=== PATIENT | male | born 1970 | race Asian ===

== ENCOUNTER 2020-03-09 11:02 | Outpatient (CLI) | payer OTHER | END 2020-03-09 20:34 | disposition home or self-care (01) | LOC: LABW 11:02 | PROVIDERS: ATTEND Podiatrist Foot & Ankle Surgery | DX: M10.072 Idiopathic gout, left ankle and foot (principal) | CPT/HCPCS: 36415; 84550 ==

== ENCOUNTER 2020-06-11 06:53 | Inpatient (IN) | payer OTHER ==
[2020-06-11] VITALS (9 sets, daily range): BP systolic 101–136; BP diastolic 66–90; TEMP 97.4–98.6; Ht 182.9 cm; Wt 102.1 kg
[~2020-06-11] VITALS: Ht 182.9 cm; Wt 102.1 kg
[2020-06-11 07:20] LABS: PLATELET COUNT 257 K/uL (142-355)
[2020-06-11 07:25] LABS: POTASSIUM 3.9 mmol/L (3.6-5.2); SODIUM 137 mmol/L (136-145)
[2020-06-11 07:31] LABS: PARTIAL THROMBOPLASTIN TIME 24.1 SECONDS (24.5-33.6)
[2020-06-11] MEDS ORDERED: COLCHICINE0.6 MG PO (12:11)
[2020-06-11] MEDS ORDERED: FENOFIBRATE54 MG PO (12:12)
[2020-06-11] MEDS ORDERED: AMLODIPINE BESYLATE PO (12:13)
[2020-06-11] MEDS ORDERED: ALLO100T22 PO (12:14)
--- NOTE | 2020-06-11 16:15 | NUR ---
NURSE BARAKAT OF CALLED AND STATED PATIENT HAS BEEN APPROVED FOR MRI SCHEDULED FOR TOMORROW AM (MONDAY, 06/11).
--- NOTE | 2020-06-11 20:54 | NUR ---
PT EXHIBITING ANXIOUS BEHAVIOR AND DEMONSTRATING RESTLESS BEHAVIOR. PT IS SITTING UP IN A HIGH FOWLERS POSITION WITH BED IN LOWEST POSITION, AND PT STATES "I KNOW I'M PROBABLY DETOXING BUT IT FEELS LIKE BUGS ARE BITING ME" PRN MEDICATIONS ADMINISTERED PER DOCTOR'S ORDER. CALL LIGHT WITHIN REACH AND WILL CONTINUE TO MONITOR FOR MEDICATION EFFECTIVENESS.
--- NOTE | 2020-06-11 23:01 | NUR ---
PRN MORPHINE 2 MG GIVEN PER DOCTOR'S ORDER DUE TO PT'S CONTINUOUS COMPLAINT OF CONSTANT EPIGASTRIC PAIN THAT RADIATES TO THE LEFT HYPOCHONDRIUM REGION. PT STATES "IT IS A 7 ON A SCALE FROM 1-10". WILL CONTINUE TO MONITOR FOR MEDICATION EFFECTIVENESS.
[2020-06-12 02:09] LABS: POTASSIUM 3.4 mmol/L (3.6-5.2)
--- NOTE | 2020-06-12 03:56 | NUR ---
PRN MORPHINE GIVEN AT THIS TIME FOR ABDOMINAL PAIN AND DISCOMFORT.
[2020-06-12 04:00] VITALS: BP 120/78; TEMP 98.4
--- NOTE | 2020-06-12 04:45 | NUR ---
PT IS RESTING QUIETLY AT THIS TIME IN A LOW-FOWLERS POSITION WITH SIDE RAILS UP TIMES TWO WITH BED IN LOWEST POSITION WITH TV ON AT THIS TIME.
[2020-06-12 08:00] VITALS: BP 134/92; TEMP 98.8
--- NOTE | 2020-06-12 09:10 | NUR ---
PATIENT C/O OF ABDOMINAL PAIN AND REPORTS PAIN "GOES AROUND ON RIGHT SIDE AND LOOPS AROUND TO LEFT SIDE AND IS SPREADING SLOWLY UP MY STOMACH". PATIENT DESCRIBES THE PAIN THROBBIN, SHARP PAIN AND TENDER TO TOUCH, 10/10 ON NUMERIC PAIN SCALE. ADMINISTERED MORPHINE 2MG SIVP PER PHYSICIAN ORDERS. PATIENT TOLERATED WELL. FOR BREAKFAST, PATIENT HAD A BOWL OF BROTH, APPLE JUICE X2, AND HALF BOTTLE OF WATER THIS MORNING.
--- NOTE | 2020-06-12 10:20 | NUR ---
PATIENT CONTINUE TO EXPERIENCE EPIGASTRIC AND ABDOMINAL PAIN, 8/10 NUMERIC PAIN SCALE.
--- NOTE | 2020-06-12 11:55 | NUR ---
PATIENT C/O OF BEING ANXIOUS DUE TO PAIN AND REQUESTING ATIVAN. ATIVAN ADMINISTERED VIA SIVP PER PHYSICIAN ORDERS. NO S/SX OF DISTRESS NOTED WITH PATIENT AT THIS TIME.
[2020-06-12 12:00] VITALS: BP 148/97; TEMP 98.1
--- NOTE | 2020-06-12 14:05 | NUR ---
PATIENT IN SEMI FOWLERS POSITION WATCHING TV. BANANA BAG BEGAN INFUSING AT 200ML/HR WITHOUT DIFFICULTY. PATIENT DENIES ANY PAIN OR BURNING TO IV SITE, NO REDNESS, EDEMA OR DRAINAGE NOTED. PATIENT INSTRUCTED TO CALL FOR ANY ASSISTANCE OR NEEDS, PT V/O UNDERSTANDING. CALL LIGHT WITHIN REACH.
--- NOTE | 2020-06-12 14:20 | NUR ---
PATIENT STATED "I HOPE SHE LETS ME GO BACK HOME". QUESTIONED PATIENT ON HIS DESIRE TO ATTEND INHOUSE THERAPY PREVIOUSLY V/O BY PATIENT. PATIENT V/O HE WOULD LIKE THERAPY BUT HE HAS A NEW HOME, BABY, NEW VEHICLE AND BEEN FOR FIVE (5) YEARS.
[2020-06-12 16:00] VITALS: BP 119/89; TEMP 98.5
--- NOTE | 2020-06-12 17:51 | NUR ---
PER DR. BLANKENSHIP, PATIENT IS ALLOWED TO HAVE ICE CHIPS. PROVIDED WATER CUP FILLED WITH ICE CHIPS TO PATIENT AT THIS TIME.
--- NOTE | 2020-06-12 19:45 | NUR ---
PT CALLED COUNTERSINKER BALANCE SCREW HOLE LIGHT WANTING HIS NURSE OG. PT FOUND AWAKE, ALERT, AND ORIENTED STANDING NEXT TO BED, STATES HE HEARD AND SAW A RAT IN ROOM MULTIPLE TIMES AND THAT HE WANTS TO LEAVE. REASSURED PT AND TALKED WITH PT TO CALM HIM. EXPLAINED THAT IF HE LEFT IT WOULD BE AGAINST MEDICAL ADVICE AND ENCOURAGED PT TO STAY DUE TO MEDICAL RISKS. PT STATES HE WANTS TO LEAVE AND HE WILL SIGN AMA FORM. AGAIN TRIED TO ENCOURAGED PT TO STAY AT LEAST TILL MORNING AND STAFF WOULD MOVE HIM TO ANOTHER ROOM. PT REFUSES AND WANTS TO LEAVE. ALSO ASKED FOR STAFF TO TAKE HIS IV OUT. ADVISED PT THAT TREE TRIMMING LINE TECHNICIAN WOULD SEND CHARGE NURSE IN TO SPEAK WITH HIM. NO S/S OF ACUTE DISTRESS OR PAIN NOTED. IV INTACT TO L FA WITH NS INFUSING AT 200ML/HR.
--- NOTE | 2020-06-12 19:50 | NUR ---
ENTERED PATIENT'S ROOM. PATIENT SITTING UP IN BED. SUITCASE SITTING BESIDE PATIENT. I ASKED THE PATIENT WHAT THE ISSUE WAS. HE EXPLAINED THAT HE HEARD SOMETHING IN THE CEILNG AND SAID THAT HE SAW A RAT THROUGH THE AIR VENT. HE STATES THAT HE LEFT HIS HOME FIFTEEN YEARS AGO AFTER SEEING A RAT. I TOLD THE PATIENT THAT I UNDERSTOOD, AND I REASSURED HIM THAT WE WOULD BE GLAD TO MOVE HIM INTO ANOTHER ROOM FOR THE NIGHT. I EXPLAINED THAT HE WAS STILL RECEIVING FLUIDS AND VITAMINS VIA IV. HE STATES THAT HE UNDERSTOOD, BUT HE WAS ADAMANT THAT HE WAS READY TO GO HOME TONIGHT. I EXPLAINED THAT HE WOULD HAVE TO SIGN AN AMA FORM. HE VERBALIZED UNDERSTANDING OF THE ABOVE.
[2020-06-12 20:00] VITALS: BP 119/83; TEMP 98.8
--- NOTE | 2020-06-12 20:20 | NUR ---
MANAGER SUBWAY SPOKE WITH PT AGAIN ABOUT LEAVING AND PT WANTS TO LEAVE AMA, OFFERED AGAIN TO CHANGE PT'S ROOM PT REFUSES AND STATES HE HAS ALREADY CALLED HIS TO COME GET HIM. ON PHONE ALSO AND STATES SHE WAS ALMOST AT HOSPITAL. CONTACTED DR. STRATTON IN ER ABOUT PT LEAVING.
--- NOTE | 2020-06-12 20:33 | NUR ---
JOINT CUTTER MACHINE AND CHARGE NURSE Jai NYE RN AT PT'S BEDSIDE WITH AMA FORM. PT EDUCATED ON LEAVING AMA AND POSSIBILITY THAT HIS CONDITION COULD WORSEN AND OTHER RISKS BY LEAVING AGAINST MEDICAL ADVICE, PT AGREES AND AMA FORM SIGNED. LADONNA WITNESSED.
--- NOTE | 2020-06-12 20:40 | NUR ---
PT PUSHED OUT VIA WHEELCHAIR AND LEFT AMA WITH HIS . CHARGE NURSE Jai NYE RN PUSHED PT OUT.
== END 2020-06-12 20:40 | disposition left against medical advice (07) | DRG 440 ==
LOC: ED 06:53 → MED/SURG 08:07
PROVIDERS: Family Medicine; ADMIT Internal Medicine; ATTEND Internal Medicine
DX: K85.20 Alcohol induced acute pancreatitis without necrosis or infection (principal); F10.10 Alcohol abuse, uncomplicated; I10 Essential (primary) hypertension; M10.9 Gout, unspecified; R10.13 Epigastric pain; E78.49 Other hyperlipidemia; K21.9 Gastro-esophageal reflux disease without esophagitis
CPT/HCPCS: 36415; 80053; 80320; 81000; 82150; 82550; 83690; 84484; 85027; 85610; 85730; 86318; 87635; 93005; 96360; 96365; 96366; 96375; 99284; J1200; J1885; J2060; J2270; J2405; J3411; J3480; J3490; Q9963; U0003

== ENCOUNTER 2020-07-11 13:44 | Emergency (ER) | payer OTHER ==
[~2020-07-11] VITALS: Ht 182.9 cm; Wt 99.8 kg
[~2020-07-11 13:44] MED LIST: ALLO100T22 PO; AMLODIPINE BESYLATE PO; COLCHICINE0.6 MG PO; FENOFIBRATE54 MG PO
[2020-07-11 13:49] VITALS: TEMP 97.8
[2020-07-11 14:21] LABS: PLATELET COUNT 289 K/uL (142-355)
[2020-07-11 14:33] LABS: POTASSIUM 3.3 mmol/L (3.6-5.2)
[2020-07-12 07:00] VITALS: BP 122/78
== END 2020-07-12 07:32 | disposition other institution (70) ==
LOC: ED 13:44
PROVIDERS: Emergency Medicine Emergency Medical Services
DX: R45.851 Suicidal ideations (principal); Z11.52 Encounter for screening for COVID-19
CPT/HCPCS: 80053; 80307; 80320; 80329; 81000; 85027; 87635; 93005; 99285; U0003

== ENCOUNTER 2020-07-29 09:59 | Emergency (ER) | payer OTHER ==
[~2020-07-29] VITALS: Ht 182.9 cm; Wt 99.8 kg
[2020-07-29 10:01] VITALS: BP 165/83; TEMP 98.6
[2020-07-29] MEDS ORDERED: DOXE25CA18 PO (10:16)
[2020-07-29] MEDS ORDERED: PRAZ1CAP16 PO (10:17)
[2020-07-29 10:37] LABS: PLATELET COUNT 339 K/uL (142-355)
[2020-07-29 10:43] LABS: POTASSIUM 3.9 mmol/L (3.6-5.2)
== END 2020-07-29 15:04 | disposition other institution (70) ==
LOC: ED 09:59
PROVIDERS: Emergency Medicine
DX: R45.851 Suicidal ideations (principal); F31.89 Other bipolar disorder; F32.89 Other specified depressive episodes; T14.91XA Suicide attempt, initial encounter; Z11.52 Encounter for screening for COVID-19; T43.622A Poisoning by amphetamines, intentional self-harm, initial encounter; T40.5X2A Poisoning by cocaine, intentional self-harm, initial encounter; T51.92XA Toxic effect of unspecified alcohol, intentional self-harm, initial encounter; Y92.89 Other specified places as the place of occurrence of the external cause
CPT/HCPCS: 80053; 80307; 80320; 80329; 81000; 85027; 87635; 93005; 99285; U0003

== ENCOUNTER 2020-09-24 10:50 | Emergency (ER) | payer OTHER ==
[~2020-09-24] VITALS: Ht 185.4 cm; Wt 119.8 kg
[~2020-09-24 10:50] MED LIST changes: +DOXE25CA18 PO; +PRAZ1CAP16 PO
[2020-09-24 10:55] VITALS: TEMP 98.5
[2020-09-24 11:41] VITALS: BP 139/82
== END 2020-09-24 11:41 | disposition home or self-care (01) ==
LOC: ED 10:50
PROC: 3E0U3BZ Introduction of Anesthetic Agent into Joints, Percutaneous Approach (ICD-10-PCS; principal; 2020-09-24)
PROC: 3E0U33Z Introduction of Anti-inflammatory into Joints, Percutaneous Approach (ICD-10-PCS; 2020-09-24)
DX: M70.61 Trochanteric bursitis, right hip (principal)
CPT/HCPCS: 99283

== ENCOUNTER 2020-10-03 08:22 | Emergency (ER) | payer OTHER ==
[~2020-10-03] VITALS: Ht 185.4 cm; Wt 119.7 kg
[2020-10-03 09:06] LABS: PLATELET COUNT 339 K/uL (142-355)
[2020-10-03 09:10] LABS: POTASSIUM 4.1 mmol/L (3.6-5.2); SODIUM 137 mmol/L (136-145)
[2020-10-03 13:43] LABS: PLATELET COUNT 339 K/uL (142-355)
[2020-10-03 15:45] LABS: PLATELET COUNT 304 K/uL (142-355)
[2020-10-03 17:24] VITALS: BP 132/83; TEMP 98.4
== END 2020-10-03 18:24 | disposition other institution (70) ==
LOC: ED 08:31
PROVIDERS: Emergency Medicine
DX: R45.851 Suicidal ideations (principal); R60.0 Localized edema; Z11.52 Encounter for screening for COVID-19
CPT/HCPCS: 80053; 80307; 80320; 80329; 81000; 83880; 85027; 87635; 93005; 96360; 96365; 96375; 99285; J0696; J1940; U0003

== ENCOUNTER 2022-03-17 19:45 | Outpatient (CLI) | payer OTHER | END 2022-03-17 20:17 | disposition home or self-care (01) | LOC: RAD 19:45 | PROVIDERS: ATTEND Physician Assistant | DX: M25.551 Pain in right hip (principal) ==

== ENCOUNTER 2022-06-22 13:56 | Emergency (ER) | payer OTHER ==
[~2022-06-22] VITALS: Ht 182.9 cm; Wt 131.5 kg
[2022-06-22 14:05] VITALS: BP 121/76; TEMP 97.3
== END 2022-06-22 15:10 | disposition home or self-care (01) ==
LOC: ED 13:56
DX: M25.551 Pain in right hip (principal); G89.29 Other chronic pain
CPT/HCPCS: 96374; 96375; 99283; 99284; J2270; J2550

== ENCOUNTER 2022-10-24 11:32 | Inpatient (IN) | payer OTHER ==
[~2022-10-24] VITALS: Ht 182.9 cm; Wt 127.2 kg
[2022-10-24] VITALS (8 sets, daily range): BP systolic 127–162; BP diastolic 74–95; TEMP 97.4–98.9; Ht 182.9 cm; Wt 127.2 kg
[2022-10-24 12:25] LABS: PLATELET COUNT 240 K/uL (142-355); POTASSIUM 3.6 mmol/L (3.6-5.2); SODIUM 136 mmol/L (136-145)
[2022-10-24] MEDS ORDERED: WELLBUTRIN150 MG PO (18:17)
[2022-10-24] MEDS ORDERED: ONDA4TAB3 PO (18:17)
[2022-10-24] MEDS ORDERED: TAMS0.4C PO (18:18)
[2022-10-24] MEDS ORDERED: DICL75TA4 PO (18:19)
[2022-10-24] MEDS ORDERED: BUSPIRONE HYDR7.5 MG PO (18:19)
[2022-10-24] MEDS ORDERED: COLC0.6T6 PO (18:20)
[2022-10-24] MEDS ORDERED: IBU800 MG PO (18:22)
[2022-10-24] MEDS ORDERED: BANOPHEN50 MG PO (18:23)
[2022-10-24] MEDS ORDERED: ACET-689 PO (18:23)
[2022-10-24] MEDS ORDERED: INVEGA SUS117 MG/0.7 IM (18:24)
[2022-10-25 04:00] VITALS: BP 144/79; TEMP 98.4
[2022-10-25 06:22] LABS: POTASSIUM 3.5 mmol/L (3.6-5.2); SODIUM 137 mmol/L (136-145)
[2022-10-25 07:44] VITALS: BP 127/85; TEMP 97.6
[2022-10-25 11:28] VITALS: BP 132/87; TEMP 98.5
[2022-10-25 16:00] VITALS: BP 133/74; TEMP 98.5
[2022-10-25 19:41] VITALS: BP 135/78; TEMP 98.4
[2022-10-25 23:36] VITALS: BP 118/73; TEMP 98.8
[2022-10-26 03:36] VITALS: BP 141/88; TEMP 98.4
[2022-10-26 04:26] LABS: PLATELET COUNT 172 K/uL (142-355)
[2022-10-26 05:39] LABS: POTASSIUM 3.4 mmol/L (3.6-5.2)
[2022-10-26 08:00] VITALS: BP 137/84; TEMP 99.2
[2022-10-26 11:52] VITALS: BP 155/86; TEMP 98.6
[2022-10-26 15:53] VITALS: BP 137/85; TEMP 98.9
[2022-10-26 19:48] VITALS: BP 119/79; TEMP 98.4
[2022-10-27] VITALS: BP 137/73; TEMP 98.2
[2022-10-27 03:37] VITALS: BP 129/80; TEMP 98.6
[2022-10-27 07:51] LABS: PLATELET COUNT 187 K/uL (142-355)
[2022-10-27 08:00] VITALS: BP 148/86; TEMP 98.5
[2022-10-27 08:47] LABS: POTASSIUM 3.5 mmol/L (3.6-5.2)
[2022-10-27 12:00] VITALS: BP 135/87; TEMP 98.3
[2022-10-27 15:52] VITALS: BP 141/77; TEMP 98.6
[2022-10-27 20:00] VITALS: BP 149/87; TEMP 97.6
[2022-10-28] VITALS: BP 132/84; TEMP 97.7
[2022-10-28 04:00] VITALS: BP 128/77; TEMP 97.8
[2022-10-28 08:00] VITALS: BP 147/94; TEMP 98.1
[2022-10-28 09:22] LABS: POTASSIUM 3.3 mmol/L (3.6-5.2)
[2022-10-28 11:57] VITALS: BP 143/89; TEMP 98.5
== END 2022-10-28 13:15 | disposition home or self-care (01) | DRG 440 ==
LOC: ED 11:32 → MED/SURG 14:00
PROVIDERS: Internal Medicine Endocrinology, Diabetes & Metabolism; ADMIT Family Medicine; ATTEND Internal Medicine
DX: K85.80 Other acute pancreatitis without necrosis or infection (principal); F10.10 Alcohol abuse, uncomplicated; R10.9 Unspecified abdominal pain; I10 Essential (primary) hypertension; F41.8 Other specified anxiety disorders; N40.0 Benign prostatic hyperplasia without lower urinary tract symptoms; E87.6 Hypokalemia
CPT/HCPCS: 36415; 80053; 82150; 83605; 83690; 84484; 85027; 93005; 96361; 96374; 96375; 99284; J1170; J2060; J2270; J2405